=== PATIENT | female | born 1950 | race Caucasian/White ===

== ENCOUNTER 2023-07-09 12:49 | Outpatient (RCR) | payer MEDICARE, SELFPAY ==
[2023-07-09 13:20] VITALS: BP 143/53; PULSE 62; RESP 18; TEMP 36.4; BMI 24.3
--- NOTE | 2023-07-09 17:47 | PCM.WC.HP ---
History of Present Illness Date of Service: 07/09/23 Chief Complaint: External bleeding from a varicose vein site, left lower extremity History of Wound: This is a 73-year-old female who presents with a recent episode of bleeding from a varicose vein on the left anterior tibial surface. The bleeding episode have been preceded by a scratch nearby which was caused by the patient's pet dog. During the course of playing kickball in the kitchen with her granddaughter, she noted bleeding from a site near the dog scratch. The patient claims that this was directly over a longstanding varicose vein. The patient applied manual pressure to the area, and elevating her lower extremity. It took nearly 1/2-hour to assure that the bleeding had stopped. The patient denies a history of deep vein thrombosis. She claims to be relatively active. She does sit a great deal each day. She does note very mild swelling at the end of each day. She sleeps on a flat mattress at night. She has had varicose veins in her lower extremities for many years. [facility] Medical History (Updated 07/09/23 @ 17:[address] Eliecer Mack MD) Arthritis Asthma Chronic venous insufficiency Depression Hyperlipidemia Hypertension Hypothyroidism Takotsubo cardiomyopathy Venous hemorrhage Home Medications alprazolam 0.25 mg tablet 0.25 mg PO TID PRN PRN anxiety 07/09/23 [History Last Taken Unknown] amitriptyline 10 mg tablet 10 mg PO QHS 07/09/23 [History Last Taken Unknown] carvedilol 12.5 mg tablet 12.5 mg PO BID 07/09/23 [History Last Taken Unknown] coenzyme Q10 100 mg capsule 100 mg PO DAILY 07/09/23 [History Last Taken Unknown] diphenhydramine HCl 25 mg tablet (Allergy Relief (diphenhydramine)) 25 mg PO Q6H PRN allergic reaction 07/09/23 [History Last Taken Unknown] ferrous sulfate 325 mg (65 mg iron) tablet 325 mg PO DAILY 07/09/23 [History Last Taken Unknown] levothyroxine 88 mcg capsule 88 mcg PO DAILY 07/09/23 [History Last Taken Unknown] losartan 50 mg tablet 50 mg PO DAILY 07/09/23 [History Last Taken Unknown] montelukast 10 mg tablet 10 mg PO QHS 07/09/23 [History Last Taken Unknown] omega-3 fatty acids-fish oil 684 mg-1,200 mg capsule,delayed release 1 cap PO DAILY 07/09/23 [History Last Taken Unknown] omeprazole 20 mg capsule,delayed release 20 mg PO DAILY 07/09/23 [History Last Taken Unknown] potassium gluconate 595 mg (99 mg) tablet 595 mg PO DAILY 07/09/23 [History Last Taken Unknown] rosuvastatin 20 mg tablet 20 mg PO DAILY 07/09/23 [History Last Taken Unknown] sertraline 50 mg tablet 50 mg PO DAILY 07/09/23 [History Last Taken Unknown] spironolactone 25 mg tablet 25 mg PO BID 07/09/23 [History Last Taken Unknown] Allergy/AdvReac Type Severity Reaction Status Date / Time gabapentin Allergy Unknown Other Verified 07/09/23 13:46 Anesthetics - Amide Type - AdvReac Vomiting Verified 07/09/23 13:46 Select A Surgical History History of appendectomy History of arthroscopic knee surgery History of shoulder surgery History of tubal ligation Social History Smoking Status: Never smoker Vital Signs Vital Signs Vital Signs: 07/09/23 13:20 Temperature 97.5 F L Temperature Source Temporal Pulse Rate 62 Respiratory Rate 18 Blood Pressure 143/53 H Blood Pressure Mean 83 Blood Pressure Source Manual Blood Pressure Position Semi-Fowlers Blood Pressure Location Left Arm Oxygen Delivery Method Room Air Weight Weight: 129 lb Body Mass Index (BMI) 24.3 Physical Exam Const alert, oriented x3, no apparent distress, average body habitus and well nourished Constitutional Narrative: The patient's BMI is 24.3. General Appearance: cooperative, comfortable, well kempt and well developed Orientation / Consciousness: awake, oriented to person, oriented to place and oriented to time Exam Limitations: no limitations HEENT normocephalic, head/scalp atraumatic and hearing grossly normal bilaterally Head and Scalp: normal to inspection, normocephalic and atraumatic Face and Sinus: normal facial exam Nose: external nose normal External Ear: external ears normal Eyes PERRL and EOMs intact bilaterally General Eye: normal appearance of both eyes Neck full ROM General: normal visual inspection Chest inspection of chest normal Resp normal respiratory effort, normal air movement, no retractions, no use of accessory muscles and clear to auscultation bilaterally Effort and Inspection: able to speak in complete sentences Cardio regular rate, regular rhythm, S1 normal heart sound and S2 normal heart sound Extremity no calf tenderness General Extremity: Negative for clubbing or cyanosis Skin Wound Narrative: There are no open wounds or ulcerations in the patient's lower extremities. Scattered varicosities are noted in both lower extremities. They all appear to be relatively small in size. There is no significant swelling or edema. No significant skin changes are noted. There is no significant lipodermatosclerosis or hyperpigmentation. Neuro oriented x3, CN's II-XII intact bilaterally, moves all extremities and no focal motor deficits Sensorium / Orientation: awake, alert, oriented to person, oriented to place and oriented to time Psych Appearance: grossly normal and appropriate Attitude: calm Activity / Motor Behavior: appropriate eye contact Speech: normal speech Mood & Affect: euthymic mood Thought Process: normal thought process Thought Content: normal thought content Attention / Concentration: attention grossly intact Debridement Note Debridement Note No debridement was completed: No debridement was completed today (There are no open wounds or ulcerations.) Post-Debridement Measurements and Additional Note: Post-Debridement Measurements/Treatment DUTCH - Nurse 1 - General Ulcer Assessment Start: 07/09/23 13:11 Freq: Status: Active Protocol: AMIRAH Activity Type Activity Date Activity User E-sign Co-sign Detail Recorded Client Recorded Date Recorded By Document 07/09/23 13:20 KW Desktop 07/09/23 13:28 KW Edit Result 07/09/23 13:20 KW (1) Desktop 07/09/23 13:30 KW (1) Right - Posterior Tibial Palpable => Yes - Posterior Tibial Doppler => Multiphasic - Dorsalis Pedis Palpable => Yes - Dorsalis Pedis Doppler => Multiphasic - Hair Growth on Legs => No - Hair Growth on Toes => No - Temperature of Extremity => Cool - Capillary Refill => Less than 3 => Seconds - Thick => No - Discolored => No - Deformed => No - Improper Length & Hygeine => No Left - Posterior Tibial Palpable => Yes - Posterior Tibial Doppler => Multiphasic - Dorsalis Pedis Palpable => Yes - Dorsalis Pedis Doppler => Multiphasic - Hair Growth on Legs => No - Hair Growth on Toes => No - Capillary Refill => Less than 3 => Seconds - Thick => No - Discolored => No - Deformed => No - Improper Length & Hygeine => No 07/09/23 13:20 WC - Today's Visit Information Type of service Initial Visit Arrival Mode Ambulatory Patient Identification Verified (Name & Yes ) Height and Weight Height 5 ft 1 in Weight 129 lb Weight in Pounds 129.0 lbs Body Mass Index (BMI) 24.3 BMI Classification Normal BSA - [place] 1.57 Vital Signs Temperature (97.8 F-99.1 F) 97.5 F L Temperature Source Temporal Pulse Rate (60-100) 62 Pulse Location Monitor Respiratory Rate (12-18) 18 Respiratory rate source Observation Oxygen Delivery Method Room Air Blood Pressure (90/60-120/80) 143/53 H Blood Pressure Mean 83 Source Manual Position Semi-Fowlers Blood Pressure Location Left Arm History Since Last Visit- (Skip if this is Patient's initial visit) Left Footwear Regular Shoe Right Footwear Regular Shoe Pain Scale: 0-10 Numeric Is Patient Pain Free? Yes Lower Extremity Assessment/ Foot Assessment/ Toe Nail Assessment Right -Posterior Tibial Palpable Yes -Posterior Tibial Doppler Multiphasic -Dorsalis Pedis Palpable Yes -Dorsalis Pedis Doppler Multiphasic -Hair Growth on Legs No -Hair Growth on Toes No -Temperature of Extremity Cool -Capillary Refill Less than 3 Seconds -Thick No -Discolored No -Deformed No -Improper Length & Hygeine No Left -Posterior Tibial Palpable Yes -Posterior Tibial Doppler Multiphasic -Dorsalis Pedis Palpable Yes -Dorsalis Pedis Doppler Multiphasic -Hair Growth on Legs No -Hair Growth on Toes No -Capillary Refill Less than 3 Seconds -Thick No -Discolored No -Deformed No -Improper Length & Hygeine No Communication Assessment Preferred language Luxembourgish Client Development Consultant Required No Able to Read Yes Able to Write Yes Communication Tools None Caregiver Communication Skills No Impairment Impairment Right Hearing Abillity Normal Left Hearing Abillity Normal Visual Assistive Devices Glasses Teaching Assessment Preferences Verbal,Written, Demonstration Barriers to Learning None Readiness To Learn Excellent Willingness to Engage in Self Management High Activies Readiness to Engage in Self Management High Activities Anxiety Level Calm Cooperation Cooperative Perception Coherent Interest in Health Problem Asks Questions Education Importance Acknowledges Need Does Patient Smoke tobacco or other Yes substances Smoking Status Never smoker Is Patient Diabetic No Functional Assessment Recent Decline in Ability to Perform Denies Any Declines Culture/Baptism/Elementary Spanish Teacher Cultural/Baptism Needs that may affect No Treatment Plan Would you allow our hospital doorperson to No meet you for the purpose of spiritual/ emotional support? Elementary Spanish Teacher to contact place of anglican No WC - Nurse 1 - General Ulcer Measurement Start: 07/09/23 13:11 Freq: Status: Active Protocol: Activity Type Activity Date Activity User E-sign Co-sign Detail Recorded Client Recorded Date Recorded By Document 07/09/23 13:20 KW Desktop 07/09/23 13:28 KW 07/09/23 13:20 Wound Center Nurse 1 Right Calf (cm) 32.5 Right Ankle (cm) 19.5 Left Calf (cm) 33 Left Ankle (cm) 19.5 Assessment/Plan Assessment/Plan (1) Venous hemorrhage: CODE(S): R58 - Hemorrhage, not elsewhere classified (2) Chronic venous insufficiency: CODE(S): I87.2 - Venous insufficiency (chronic) (peripheral) (3) Hypertension: CODE(S): I10 - Essential (primary) hypertension (4) Hypothyroidism: CODE(S): E03.9 - Hypothyroidism, unspecified (5) Depression: CODE(S): F32.A - Depression, unspecified (6) Asthma: CODE(S): J45.909 - Unspecified asthma, uncomplicated (7) Hyperlipidemia: CODE(S): E78.5 - Hyperlipidemia, unspecified (8) Takotsubo cardiomyopathy: CODE(S): I51.81 - Takotsubo syndrome (9) Arthritis: CODE(S): M19.90 - Unspecified osteoarthritis, unspecified site (10) History of arthroscopic knee surgery: CODE(S): Z98.890 - Other specified postprocedural states (11) History of shoulder surgery: CODE(S): Z98.890 - Other specified postprocedural states (12) History of appendectomy: CODE(S): Z90.49 - Acquired absence of other specified parts of digestive tract (13) History of tubal ligation: CODE(S): Z98.51 - Tubal ligation status PLAN: Plan This is a 73-year-old female who is relatively healthy, active, and functional. She appears to suffer from chronic venous insufficiency, and has multiple, scattered, small varicosities in her lower extremities bilaterally. She recently sustained a dog scratch to the left pretibial surface, which was followed shortly thereafter by spontaneous bleeding from a site that the patient believed to be a varicose vein. She applied pressure and elevating her leg, stabbing the hemorrhage. She has had no further problems since that time, and no open wounds or ulcerations are noted at this time. The patient has been imparted with advice as to the appropriate conservative management of her venous disease. She sleeps on a flat mattress at night, and has been encouraged to continue doing so. She has been advised to elevate her lower extremities is much as possible, even during daytime hours. Leg elevation is to be to heart level, or higher. Activity has been encouraged. The patient has been discouraged from prolonged idle sitting. Her current weight is optimal. We have prescribed graduated compression stockings of 15 to 20 mmHg, and the patient has been advised to wear daily. The patient suffers from arthritis, so a degree of compression slightly lower than normal has been prescribed. The patient has been provided a prescription for compression stockings, and will obtain her stockings at [facility] in [place], which is close to where she lives. She is to follow-up henceforth on an as-needed basis. Total time: 46 minutes
== END 2023-07-12 11:22 | disposition home or self-care (01) ==
LOC: WC 12:49
PROVIDERS: PCP Family Medicine; Referring Provider Family Medicine; Visit Provider Surgery
DX: R58 Hemorrhage, not elsewhere classified (principal); J45.909 Unspecified asthma, uncomplicated; I51.81 Takotsubo syndrome; M19.90 Unspecified osteoarthritis, unspecified site; F32.A Depression, unspecified; E03.9 Hypothyroidism, unspecified; I87.2 Venous insufficiency (chronic) (peripheral); E78.5 Hyperlipidemia, unspecified; Z98.890 Other specified postprocedural states; Z90.49 Acquired absence of other specified parts of digestive tract; Z98.51 Tubal ligation status
CPT/HCPCS: 99203; G0463